=== PATIENT | male | born 1970 | race Caucasian/White ===

== ENCOUNTER 2020-09-17 11:39 | Emergency (ER) | payer OTHER ==
[~2020-09-17] VITALS: Ht 172.7 cm; Wt 96.2 kg
[2020-09-17 12:17] LABS: URINE BILIRUBIN NEGATIVE (Negative); URINE BLOOD NEGATIVE (Negative); URINE CLARITY CLEAR; URINE COLOR YELLOW; URINE GLUCOSE-RANDOM NEGATIVE (Negative); URINE KETONES NEGATIVE (Negative); URINE LEUKOCYTES-REFLEX NEGATIVE (Negative); URINE NITRITE-REFLEX NEGATIVE (Negative); URINE PROTEIN NEGATIVE (Negative); URINE UROBILINOGEN 0.2 E.U./dl (0.2-1.0)
[2020-09-17 12:28] LABS: ABSOLUTE BASOPHILS 0.1 thou/uL (0.0-0.2); ABSOLUTE EOSINOPHILS 0.2 thou/uL (0.0-0.7); ABSOLUTE LYMPHOCYTES 1.7 thou/uL (0.8-5.3); ABSOLUTE MONOCYTES 0.5 thou/uL (0.0-1.2); ABSOLUTE NEUTROPHILS 4.6 thou/uL (1.6-8.1); BASOPHILS 0.9 %; EOSINOPHILS 3.2 %; HEMATOCRIT 40.8 % (42.0-52.0); HEMOGLOBIN 13.8 gm/dL (14.0-18.0); LYMPHOCYTES 24.2 %; MCH 28.7 pg (26.0-34.0); MCHC 33.8 g/dL (28.0-37.0); MCV 84.8 fL (80.0-100.0); MPV 8.1 fl. (7.2-11.1); NUCLEATED RBCS 0 /100WBC; PLATELET COUNT* 296 thou/uL (150-400); POLYS 64.7 %; RBC 4.81 mil/uL (4.50-6.00); RDW-CV 12.2 % (10.5-14.5)
[2020-09-17 12:45] LABS: CALCIUM 8.2 mg/dL (8.5-10.1)
[2020-09-17 12:50] LABS: ALBUMIN 4.1 g/dL (3.4-5.0); TOTAL BILIRUBIN 0.7 mg/dL (<0.1-1.0); TOTAL PROTEIN 7.3 g/dL (6.4-8.2)
[2020-09-17] MEDS ORDERED: DOXYCYCLINE 10100 MG PO (13:41)
[2020-09-17 14:15] VITALS: BP 114/64
== END 2020-09-17 14:15 | disposition home or self-care (01) ==
LOC: M.ERS 11:39
PROVIDERS: Nurse Practitioner Family
DX: N45.1 Epididymitis (principal)